=== PATIENT | female | born 1995 | race Caucasian/White ===

== ENCOUNTER 2016-09-07 11:31 | Emergency (ER) | payer OTHER ==
[~2016-09-07] VITALS: Ht 165.1 cm; Wt 78.9 kg
[~2016-09-07 11:31] MED LIST: ADDERALL PO; ADDERALL20 MG PO; AMOXICILLIN500 M3 PO; AMOXICILLIN500 MG PO; ATARAX25 MG PO; AUGMENTIN 875875 MG PO; CIPRO250 MG PO; CLARITIN-D 10 M1 T21 PO; CLARITIN10 MG PO; CLINDAMYCIN HC300 MG PO; CYCLOBENZAPRINE10 MG PO; CYCLOBENZAPRINE5 MG PO; DIFLUCAN150 MG PO; DOXYCYCLINE MO100 MG PO; FLAGYL500 MG PO; HYDROCODONE BIT1 T11 PO; MEDROL DOSEPAK4 MG PO; NAPROSYN500 MG PO; NORCO 325 MG-51 TAB PO; PEN-VEE K500 MG PO; PERCOCET 325 MG1 TA2 PO; PERCOCET 325 MG1 TA7 PO; PHENERGAN W/ DE30 ML PO; PHENERGAN25 M1 PO; PREDNICOT10 MG PO; PREDNISONE20 MG PO; PRENATAL1 TA3 PO; ROBITUSSIN DM120 ML PO; TYLENOL W/CODEI1 TA4 PO; ULTRAM50 MG PO; VIBRAMYCIN100 MG PO; VICODIN ES 7501 TAB PO; ZANTAC 150150 MG PO; ZOFRAN ODT4 MG SL; Zofran4 MG PO
== END 2016-09-07 12:26 | disposition home or self-care (01) ==
LOC: ED 11:31
DX: H10.31 Unspecified acute conjunctivitis, right eye (principal); F17.200 Nicotine dependence, unspecified, uncomplicated

== ENCOUNTER 2017-04-29 14:07 | Emergency (ER) | payer OTHER ==
[~2017-04-29] VITALS: Ht 167.6 cm; Wt 80.7 kg
[2017-04-29] MEDS ORDERED: PROAIR HFA8.5 GM INH (14:52)
[2017-04-29] MEDS ORDERED: FLONASE ALLERG9.9 ML NAS (15:49)
[2017-04-29] MEDS ORDERED: ALLEGRA-D 24 H1 EACH PO (15:49)
[2017-04-29] MEDS ORDERED: DELTASONE20 M1 PO (15:49)
== END 2017-04-29 15:52 | disposition home or self-care (01) ==
LOC: ED 14:07
DX: J06.9 Acute upper respiratory infection, unspecified (principal); F17.200 Nicotine dependence, unspecified, uncomplicated; Z98.890 Other specified postprocedural states

== ENCOUNTER 2019-01-18 09:46 | Emergency (ER) | payer OTHER ==
[~2019-01-18] VITALS: Ht 170.1 cm; Wt 63.5 kg
[~2019-01-18 09:46] MED LIST changes: +ALLEGRA-D 24 H1 EACH PO; +DELTASONE20 M1 PO; +FLONASE ALLERG9.9 ML NAS; +MACROBID100 M1 PO; +PROAIR HFA8.5 GM INH; +PYRIDIUM200 M1 PO
[2019-01-18 10:05] LABS: BASO % 0.6 % (0.0-1.0); EOS # 0.1 10*3/uL (0.0-0.4); EOS % 2.3 % (1.0-4.0); HEMATOCRIT 40.9 % (37.0-47.0); HEMOGLOBIN 13.3 g/dl (12.0-16.0); LYMPH # 1.3 10*3/uL (1.3-4.4); LYMPH % 27.3 % (27.0-41.0); MEAN CELL VOLUME 97.1 fl (81.0-99.0); MEAN CORPUSCULAR HGB 31.6 pg (27.0-31.0); MEAN CORPUSCULAR HGB CONC 32.5 g/dl (33.0-37.0); MONO # 0.5 10*3/uL (0.1-1.0); MONO % 9.6 % (3.0-9.0); NEUT # 2.8 10*3/uL (2.3-7.9); PLATELET COUNT AUTOMATED 250 10*3/uL (130-400); RED BLOOD COUNT 4.21 10*6/uL (4.10-5.10); RED CELL DISTRI WIDTH 12.6 % (0-14.5); WHITE BLOOD COUNT 4.7 10*3/uL (4.8-10.8)
[2019-01-18 10:12] LABS: BILIRUBIN NEGATIVE (NEGATIVE); BLOOD 3+ (NEGATIVE); CLARITY CLOUDY (CLEAR); COLOR YELLOW (YELLOW); GLUCOSE NEGATIVE (NEGATIVE); KETONE NEGATIVE (NEGATIVE); LEUKO ESTERASE NEGATIVE (NEGATIVE); NITRITE NEGATIVE (NEGATIVE); SPECIFIC GRAVITY 1.025 (1.005-1.030); UROBILINOGEN 0.2 E.U./dl (0.2-1.0)
[2019-01-18 10:21] LABS: ALBUMIN 4.1 gm/dl (3.1-4.5); ALKALINE PHOSPHATASE 51 U/L (45-117); BUN 7 mg/dl (7-24); CHLORIDE 112 mmol/L (98-107); CREATININE 0.79 mg/dL (0.55-1.02); POTASSIUM 3.8 mmol/L (3.5-5.1); SGOT/AST 16 IU/L (3-35); SGPT/ALT 22 U/L (12-78); SODIUM 143 mmol/L (136-145); TOTAL PROTEIN 7.4 gm/dL (6.4-8.2)
[2019-01-18 10:28] LABS: BACTERIA 2+; RBC TNTC rbc/hpf (0-2)
[2019-01-18] MEDS ORDERED: FLAGYL500 MG PO (10:51)
== END 2019-01-18 11:05 | disposition home or self-care (01) ==
LOC: ED 09:46
PROVIDERS: Nurse Practitioner Family
DX: N93.8 Other specified abnormal uterine and vaginal bleeding (principal); A59.9 Trichomoniasis, unspecified; Z87.442 Personal history of urinary calculi

== ENCOUNTER → 2019-05-17 | Outpatient (CLI) | payer OTHER ==
[2019-05-17 11:24] LABS: HEMATOCRIT 43.6 % (37.0-47.0); HEMOGLOBIN 14.4 g/dl (12.0-16.0); MEAN CELL VOLUME 95.4 fl (81.0-99.0); MEAN CORPUSCULAR HGB 31.5 pg (27.0-31.0); MEAN PLATELET VOLUME 9.8 fl (9.6-12.3); RED BLOOD COUNT 4.57 10*6/uL (4.10-5.10); RED CELL DISTRI WIDTH 12.3 % (0-14.5); WHITE BLOOD COUNT 4.1 10*3/uL (4.8-10.8)
[2019-05-17 11:52] LABS: ALBUMIN 4.2 gm/dl (3.1-4.5); ALKALINE PHOSPHATASE 57 U/L (45-117); BUN 6 mg/dl (7-24); CHLORIDE 108 mmol/L (98-107); CHOLESTEROL 179 mg/dL (<200); CREATININE 0.78 mg/dL (0.55-1.02); FREE T4 1.09 ng/dl (0.76-1.46); HDL CHOLESTEROL 45 mg/dl (40-60); LDL CHOLESTEROL 108 mg/dL (9-159); POTASSIUM 4.1 mmol/L (3.5-5.1); SGOT/AST 12 IU/L (3-35); SGPT/ALT 26 U/L (12-78); SODIUM 141 mmol/L (136-145); TOTAL PROTEIN 7.4 gm/dL (6.4-8.2); TRIGLYCERIDES 130 mg/dl (<150); VLDL CHOLESTEROL 26 mg/dL (6-40)
== END | disposition home or self-care (01) ==
LOC: LAB 10:02
PROVIDERS: Family Medicine
DX: E55.9 Vitamin D deficiency, unspecified (principal); R53.83 Other fatigue

== ENCOUNTER 2022-04-13 09:44 | Emergency (ER) | payer MEDICAID ==
[~2022-04-13] VITALS: Ht 167.6 cm; Wt 74.8 kg
[2022-04-13 10:53] LABS: BASO % 0.3 % (0.0-1.0); EOS # 0.1 10*3/uL (0.0-0.4); EOS % 0.9 % (1.0-4.0); HEMATOCRIT 43.4 % (37.0-47.0); LYMPH # 1.5 10*3/uL (1.3-4.4); LYMPH % 11.4 % (27.0-41.0); MEAN CELL VOLUME 94.1 fl (81.0-99.0); MEAN CORPUSCULAR HGB 31.9 pg (27.0-31.0); MEAN CORPUSCULAR HGB CONC 33.9 g/dl (33.0-37.0); MEAN PLATELET VOLUME 8.7 fl (9.6-12.3); MONO # 0.8 10*3/uL (0.1-1.0); MONO % 6.5 % (3.0-9.0); NEUT # 10.3 10*3/uL (2.3-7.9); NEUT % 80.6 % (47.0-73.0); PLATELET COUNT AUTOMATED 258 10*3/uL (130-400); RED BLOOD COUNT 4.61 10*6/uL (4.10-5.10); RED CELL DISTRI WIDTH 12.3 % (0-14.5); WHITE BLOOD COUNT 12.7 10*3/uL (4.8-10.8)
[2022-04-13 11:15] LABS: ALKALINE PHOSPHATASE 47 U/L (46-116); BETA-HCG, QUANT < 3.0 mIU/mL (0-10); BUN 7 mg/dl (9-23); CHLORIDE 104 mmol/L (98-107); LIPASE 31 U/L (12-53); POTASSIUM 3.9 mmol/L (3.4-5.1); SGPT/ALT 22 U/L (10-49)
== END 2022-04-13 13:29 | disposition home or self-care (01) ==
LOC: ED 09:44
PROVIDERS: Emergency Medicine
DX: R51.9 Headache, unspecified (principal); Z98.890 Other specified postprocedural states; Z87.442 Personal history of urinary calculi

== ENCOUNTER 2023-05-26 12:09 | Emergency (ER) | payer MEDICAID ==
[~2023-05-26] VITALS: Ht 165.1 cm; Wt 80.7 kg
[2023-05-26] MEDS ORDERED: SODIUM CHLORIDE 0.9% 1,000 ML IV ONE (12:30)
[2023-05-26] MEDS ORDERED: Ketorolac Tromethamine 15 MG/ML VIAL IV ONE (12:30)
[2023-05-26 13:09] LABS: BASO % 0.3 % (0.0-1.0); EOS # 0.1 10*3/uL (0.0-0.4); EOS % 0.5 % (1.0-4.0); LYMPH % 17.5 % (27.0-41.0); MEAN CELL VOLUME 93.2 fl (81.0-99.0); MEAN CORPUSCULAR HGB 30.9 pg (27.0-31.0); MEAN CORPUSCULAR HGB CONC 33.2 g/dl (33.0-37.0); MEAN PLATELET VOLUME 8.3 fl (9.6-12.3); MONO # 0.5 10*3/uL (0.1-1.0); MONO % 4.4 % (3.0-9.0); NEUT # 8.7 10*3/uL (2.3-7.9); NEUT % 77.1 % (47.0-73.0); PLATELET COUNT AUTOMATED 304 10*3/uL (130-400); RED CELL DISTRI WIDTH 12.7 % (0-14.5); WHITE BLOOD COUNT 11.2 10*3/uL (4.8-10.8)
[2023-05-26 13:29] LABS: ALKALINE PHOSPHATASE 58 U/L (46-116); BUN 7 mg/dl (9-23); CHLORIDE 106 mmol/L (98-107); POTASSIUM 3.7 mmol/L (3.4-5.1); SGPT/ALT 14 U/L (5-49); TOTAL PROTEIN 7.3 gm/dL (6.0-8.0)
[2023-05-26] MEDS ORDERED: CYCLOBENZAPRINE10 MG PO (13:43)
[2023-05-26] MEDS ORDERED: MELOXICAM15 MG PO (13:43)
== END 2023-05-26 13:48 | disposition home or self-care (01) ==
LOC: ED 12:09
PROVIDERS: Emergency Medicine
DX: S76.911A Strain of unspecified muscles, fascia and tendons at thigh level, right thigh, initial encounter (principal); Z98.890 Other specified postprocedural states; X58.XXXA Exposure to other specified factors, initial encounter; Y93.89 Activity, other specified; Y92.89 Other specified places as the place of occurrence of the external cause; Y99.8 Other external cause status

== ENCOUNTER → 2023-11-27 | Outpatient (CLI) | payer MEDICAID ==
[~2023-11-27] MED LIST changes: +MELOXICAM15 MG PO
[2023-11-27 17:23] LABS: BASO % 1.1 % (0.0-1.0); EOS % 0.5 % (1.0-4.0); HEMATOCRIT 39.9 % (37.0-47.0); LYMPH # 1.2 10*3/uL (1.3-4.4); MEAN CELL VOLUME 94.5 fl (81.0-99.0); MEAN CORPUSCULAR HGB CONC 32.8 g/dl (33.0-37.0); MEAN PLATELET VOLUME 8.9 fl (9.6-12.3); MONO # 0.5 10*3/uL (0.1-1.0); MONO % 14.1 % (3.0-9.0); NEUT # 1.9 10*3/uL (2.3-7.9); NEUT % 51.3 % (47.0-73.0); PLATELET COUNT AUTOMATED 265 10*3/uL (130-400); RED BLOOD COUNT 4.22 10*6/uL (4.10-5.10); RED CELL DISTRI WIDTH 12.6 % (0-14.5); WHITE BLOOD COUNT 3.7 10*3/uL (4.8-10.8)
[2023-11-27 17:36] LABS: BILIRUBIN Negative (Negative); BLOOD 3+ (Negative); CLARITY Cloudy (Clear); COLOR Dark Yellow (Yellow); GLUCOSE Negative (Negative); KETONE Trace (Negative); LEUKO ESTERASE 1+ (Negative); NITRITE Negative (Negative); PH 5.5 (4.5-8.0); SPECIFIC GRAVITY >= 1.030 (1.001-1.030)
[2023-11-27 18:00] LABS: ALKALINE PHOSPHATASE 58 U/L (46-116); BUN 7 mg/dl (9-23); CHLORIDE 104 mmol/L (98-107); POTASSIUM 3.8 mmol/L (3.4-5.1); SGPT/ALT 22 U/L (5-49); TOTAL PROTEIN 6.9 gm/dL (6.0-8.0)
[2023-11-27 18:01] LABS: BETA-HCG, QUANT < 3.0 mIU/mL (3-10)
[2023-11-27 18:09] LABS: BACTERIA 1+; MUCOUS 2+; RBC 16-20 rbc/hpf (0-2)
== END | disposition home or self-care (01) ==
LOC: LAB 17:02
PROVIDERS: ATTEND Nurse Practitioner Family
DX: R35.0 Frequency of micturition (principal); R10.30 Lower abdominal pain, unspecified; N39.3 Stress incontinence (female) (male)

== ENCOUNTER → 2023-11-30 | Outpatient (CLI) | payer MEDICAID | END | disposition home or self-care (01) | LOC: US 12:43 | PROVIDERS: ATTEND Nurse Practitioner Family | DX: N85.8 Other specified noninflammatory disorders of uterus (principal); R10.30 Lower abdominal pain, unspecified; N93.9 Abnormal uterine and vaginal bleeding, unspecified ==